=== PATIENT | female | born 1990 | race Caucasian/White ===

== ENCOUNTER 2024-10-27 18:37 | Outpatient (REF) | payer MEDICARE, MEDICAID, SELFPAY ==
--- NOTE | ~2024-10-27 | MR_ITS ---
EXAMINATION: MR BRAIN WITHOUT IV CONTRAST HISTORY: COGNITIVE CHANGES. TECHNIQUE: Sagittal T1, coronal FLAIR, and axial T1, FLAIR, T2, gradient echo, and diffusion weighted MR images of the brain were obtained. COMPARISON: None FINDINGS: The brain parenchyma is unremarkable, demonstrating normal grace/white differentiation. No foci of abnormal signal intensity are identified. The ventricular system is normal in size and configuration. There is no mass effect or midline shift. No intra or extra-axial fluid collections are identified. There are no foci of restricted diffusion. Normal vascular flow voids are noted in the basilar and carotid arteries. There is a polyp versus mucous retention cyst in the right maxillary sinus. MR/MR head/brain wo con IMPRESSION: Unremarkable MRI of the brain without contrast. Electronically signed by: Edgar Royal MD 10/30/2024 07:50 AM EDT
== END 2024-10-27 18:38 | disposition home or self-care (01) ==
LOC: HO.MRI 18:37
PROVIDERS: Visit Provider Psychiatry & Neurology Neurology
DX: R41.89 Other symptoms and signs involving cognitive functions and awareness (principal)
CPT/HCPCS: 70551

== ENCOUNTER → 2024-10-27 19:00 | Outpatient (BNV) | payer MEDICARE, MEDICAID, SELFPAY | PROVIDERS: Visit Provider Radiology Diagnostic Radiology | DX: R41.89 Other symptoms and signs involving cognitive functions and awareness (principal) | CPT/HCPCS: 70551 ==

== ENCOUNTER 2024-10-28 10:48 | Outpatient (REF) | payer MEDICARE, MEDICAID, SELFPAY ==
--- OUTSIDE RECORDS SUMMARY | 2024-10-28 10:51 | XMS_ITS | Encounter Summary ---
Author Organization [facility] Address [address] [facility] [address] [place] [address] Phone Care Team Providers Care Milk Route Deliverer Name Role Phone Destinee Alva PA-C Primary Care Provider Kylee hein Encounter Details Date Type Department Care Team ([facility] Contact Info) Description 02/12/2023 Office Communication [facility] [address] [facility] [address] [place] [address] Prabhakar Barahona Social History Tobacco Use Types Packs/Day Years Used Date Smoking Tobacco: Never Alcohol Use Standard Drinks/Week Comments Yes 0 (1 standard drink = 0.6 oz pure alcohol) Alcoholic Drinks/day: Occasional social drink Comments Unknown Sex and Gender Information Value Date Recorded Sex Assigned at Female 03/21/2022 12:48 PM EDT Legal Sex Female 4:44 PM EST Gender Identity Female 03/21/2022 12:48 PM EDT Sexual Orientation Not on file documented as of this encounter Plan of Treatment Upcoming Encounters Date Type Department Care Team (Late Contact Info) Description 01/15/2025 1:00 PM EDT Office Visit [facility] [address] [place] [address] [place] [phone] Ferny Schwab MD [address] [facility] [address] [place] [phone] documented as of this encounter Visit Diagnoses Not on filedocumented in this encounter Care Teams Milk Route Deliverer Relationship Specialty Start Date End Date Destinee Alva PA-C PCP - General Internal Medicine 01/20/24 documented as of this encounter
--- OUTSIDE RECORDS SUMMARY | 2024-10-28 10:51 | XMS_ITS | Clinical Summary ---
Author Organization [facility] Address [address] [place] [address] Phone Care Team Providers Care Funnel Setter Name Role Phone Destinee Alva PA-C Primary Care Provider Kylee hein Allergies Active Allergy Reactions Criticality Noted Date Comments Nsaids 07/06/2017 Pseudoephedrine 07/06/2017 Medications atorvastatin (LIPITOR) 20 MG tablet Take 20 mg by mouth daily 6 Active LORazepam (ATIVAN) 1 MG tablet Take 1 mg by mouth 4 (four) times a day 8 Active Melatonin 5 MG capsule Take 1 mg by mouth 1 (one) time each day Active naltrexone (DEPADE) 50 MG tablet Take 37.5 mg by mouth in the morning and 37.5 mg in the evening. Active cloNIDine (CATAPRES) 0.1 MG tablet 1 Active docusate sodium (COLACE) 100 MG capsule Take 100 mg by mouth 1 Active escitalopram (LEXAPRO) 10 MG tablet TAKE 1 TABLET BY MOUTH IN THE MORNING DECREASE IN DOSE 1 Active famotidine (PEPCID) 20 MG tablet Take 20 mg by mouth 1 (one) time each day 1 Active Incassia 0.35 MG tablet Take 1 tablet by mouth 1 (one) time each day 1 Active senna (SENOKOT) 8.6 MG tablet Take 1 tablet by mouth 1 (one) time each day 1 Active buPROPion (WELLBUTRIN) 100 MG tablet 300 mg Active famotidine (PEPCID) 20 MG tablet famotidine Take No date recorded No form recorded No frequency recorded No route recorded No set duration recorded No set duration amount recorded active No dosage strength recorded No dosage strength units of measure recorded Active D3 Super Strength 50 MCG (2000 UT) capsule Take 1 tablet by mouth 1 (one) time each day 2 Active Jardiance 10 MG tablet Take 25 mg by mouth 1 (one) time each day 2 Active losartan (COZAAR) 50 MG tablet Take 50 mg by mouth 2 Active dicyclomine (BENTYL) 20 MG tablet Take 20 mg by mouth every 6 (six) hours Active ACETAMINOPHEN ER PO Take 500 mg by mouth every 8 (eight) hours if needed for mild pain Do not crush, chew, or split. 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 02/11/2021 Recurrent major depression in remission 07/06/2017 02/11/2021 Self-injurious behavior 07/06/2017 08/06/2020 Patient encounter status 01/10/2017 Hyperlipidemia 09/01/2016 02/11/2021 Panic disorder (episodic paroxysmal anxiety) 6 02/11/2021 Servando de la Tourette's syndrome 11/08/2015 02/11/2021 Anxiety 10/21/2015 02/11/2021 Family History Medical History Relation Comments Hypertension Father Stroke Mother Relation Status Comments Father Mother Social History Tobacco Use Types Packs/Day Years [...] PM EDT Sexual Orientation Not on file Last Filed Vital Signs Vital Sign Reading Time Taken Comments Blood Pressure 130/72 01/20/2024 4:00 PM EDT Pulse 88 01/20/2024 4:00 PM EDT Temperature - - Respiratory Rate - - Oxygen Saturation 99% 01/20/2024 4:00 PM EDT Inhaled Oxygen Concentration - - Weight 66.7 kg (147 lb) 01/20/2024 4:00 PM EDT Height 154.9 cm (5' 1 ) 02/18/2021 1:37 PM EDT Body Mass Index 27.78 02/18/2021 1:37 PM EDT Plan of Treatment Upcoming Encounters Date Type Department Care Team (Late st Contact Info) Description 01/15/2025 1:00 PM EDT Office Visit [facility] [address] [place] [address] [facility] [place] [phone] Ferny Schwab MD [address] [facility] [address] [place] [address] Health Maintenance Due Date Last Done Comments Hepatitis B Vaccine (1 of 3 - 19+ 3-dose series) 2009 Pneumococcal Vaccine: Peds ( 0 to 5 Years) and At-Risk Patients (6 to 49 Years) (1 of 2 - PCV) 2009 Influenza Vaccine (Season Ended) 2025 07/21/2022, 03/27/2021, 06/03/2020 [place] Care Teams Funnel Setter Relationship Specialty Start Date End Date Destinee Alva PA-C PCP - General Internal Medicine 01/20/24
--- OUTSIDE RECORDS SUMMARY | 2024-10-28 10:51 | XMS_ITS | Clinical Summary ---
Author Organization [address] [facility] Address [address] [place] [address] Phone Care Team Providers Care Intelligence Chief Name Role Phone Brandi Hook MD Primary Care Prov ider Allergies Active Allergy Reactions Criticality Noted Date Comments Nsaids (Non-Steroidal Anti-I nflammatory Drug) 02/02/2017 Pseudoephedrine Hcl 02/02/2017 Medications hydrocortisone (ANUSOL-HC) 2.5 % rectal cream Apply 1 Dose topically 3 times daily as needed (hemorrhoid pain). 4 Active dicyclomine (BENTYL) 10 mg capsule Take 2 capsules (20 mg total) by mouth 4 (four) times a day (before meals and nightly). 4 Active atorvastatin (LIPITOR) 20 mg tablet Take 1 tablet (20 mg total) by mouth 1 (one) time each day. 4 Active senna 8.6 mg tablet Take 1 tablet (8.6 mg total) by mouth 1 (one) time each day. 4 Active empagliflozin (Jardiance) 10 mg tablet Take 25 mg by mouth daily. 1 tab po daily Active losartan (COZAAR) 50 mg tablet Take 1 tablet (50 mg total) by mouth 2 (two) times a day. Active melatonin 1 mg tablet Take 1 Tablet by mouth at bedtime. 1 tab po at bedtime Active docusate sodium (COLACE) 100 mg capsule Take 1 capsule (100 mg total) by mouth 2 (two) times a day. 3 Active KETOCONAZOLE ORAL Take by mouth. Active famotidine (PEPCID) 20 mg tablet Take 1 tablet (20 mg total) by mouth 1 (one) time each day. 3 Active lactase (Lactaid) 3,000 unit tablet Take 1 Tablet by mouth 3 times daily (with meals). 3 Active ucwsknu-doarvdr-sz ycerin (ACT Dry Mouth) lozenge Take 1 Lozenge by mouth 3 times daily as needed (dry mouth secondary to medications). 3 Active cholecalciferol (VITAMIN D-3) 50 mcg (2,000 unit) capsule Take 1 capsule (2,000 Units total) by mouth 1 (one) time each day. 2 Active biotin 5 mg capsule Take 1 capsule (5 mg total) by mouth 1 (one) time each day. Active clobetasoL (TEMOVATE) 0.05 % cream Apply topically 2 times daily. Active escitalopram (LEXAPRO) 10 mg tablet Take 10 mg by mouth daily. Active cloNIDine (CATAPRES) 0.1 mg tablet Active LORazepam (ATIVAN) 1 mg tablet Take 1 mg by mouth 2 times daily. 1mg am as needed and 1 mg at bedtime 9 Active naltrexone (DEPADE) 50 mg tablet 9 Active buPROPion SR (WELLBUTRIN SR) 150 mg 12 hr tablet Take 150 mg by mouth every morning. Active fluticasone propionate (FLONASE) 50 mcg/actuation nasal spray 1 [place] by Each Nare route daily. 6 Active acetaminophen (TYLENOL) 500 mg tablet Take 1 tablet (500 mg total) by mouth once daily as needed. 1 Active acetaminophen-pama brom 500-25 mg tablet Take 1 tablet by mouth once daily as needed. 1 Active calcium carbonate 1,500 mg (600 mg elemental calcium) tablet Take 2 tablets (3,000 mg total) by mouth 1 (one) time each day. 4 Active cetirizine (ZyrTEC) 10 mg tablet Take 1 tablet (10 mg total) by mouth 1 (one) time each day. Active citalopram (CeleXA) 40 mg tablet Take 1 tablet (40 mg total) by mouth. 6 Active dextrose-fructose- sod citrate 968-175-230 mg tablet,chewable 2 tablet(s) by mouth 2-4 tablets as needed 1 Active fluvoxaMINE (LUVOX) 100 mg tablet Take 1 tablet (100 mg total) by mouth. 8 Active haloperidoL (HALDOL) 1 mg tablet Take 1 tablet (1 mg total) by mouth 2 (two) times a day. 8 Active lamoTRIgine (LaMICtal) 25 mg tablet Take 1 tablet (25 mg total) by mouth 1 (one) time each day. 2 Active norethindrone (SHYLA,LEE,HEAT HER,MICRONOR) 0.35 mg tabletIndications: Encounter for surveillance of contraceptive pills TAKE 1 TABLET BY MOUTH EVERY DAY 84 tablet 1 5 Active Active Problems Problem Noted Date Diagnosed Date Abdominal cramping 03/31/2024 Nausea 03/31/2024 Rectal discomfort 03/31/2024 Straining with stools 03/31/2024 ADHD (attention deficit hyperactivity disorder) 10/13/2022 Renal osteodystrophy 03/24/2022 Initial insomnia 03/20/2022 Obesity 03/20/2022 Seasonal affective disorder (CMS/[facility] V24) 2021 Polycythemia, secondary 06/21/2021 Depressive disorder 06/17/2021 Hypertensive disorder 06/17/2021 Glomerulonephritis, chronic 06/17/2021 Sinus tachycardia 04/27/2021 Overview (03/31/2024): Last Assessment & Plan: We discussed the patient's sinus tachycardia and the fact that she started an exercise program this year. She believes that her overall resting heart rate is primarily below 100 in the 90s. We reviewed that in 2019 her Holter monitor suggested an overall average rate of 108. She was not exercising regularly at the time. She is treated with clonidine. She avoids all caffeine. She knows the importance of hydration. Continue to monitor can consider updating echocardiogram and/or Holter monitor to follow rate and ejection fraction. At this time praise is given for her excellent efforts at regular exercise , weight loss, healthful diet to reduce future risk. If she believes that her heart rates are elevating at rest we certainly should be notified. Of note beta-blockers were stopped due to the concern that it was exacerbating her Tourette's. Chronic kidney disease (CKD) , active medical management without dialysis, stage 3 (moderate) ([facility] V24, [facility] V28) 03/10/2021 Overview (03/31/2024): Sees nephrology at [facility] in [place] Stage 3 chronic kidney disease ([facility] V24, [facility] /[facility] V28) 02/11/2021 Secondary amenorrhea 11/16/2018 Overview (03/31/2024): Last Assessment & Plan: Reviewed could be related to halfway OCP use, although less likely with POP. I recommended labs and US to evaluate endometrial stripe. If thickened, could consider other method of contraception such as Mirena to protect endometrium as well. She agreed. Will discuss when labs and US results available. Urinary frequency 11/16/2018 Overview (03/31/2024): Last Assessment & Plan: Reassured no evidence of UTI. Likely due to flud intake. She was reassured. Recurrent major depressive d isorder, in remission ([facility] V24) 07/06/2017 Hyperlipidemia 09/01/2016 Essential hypertension 05/05/2016 Overview (03/31/2024): Last Assessment & Plan: The patient is seen 4 times annually with nephrology for her underlying renal disease and glomerulonephritis. Her blood pressure appears very well controlled in the 120s systolically. She is aware of avoiding a high salt diet. Continue with risk factor modification. Obsessive-compulsive disorder 02/05/2016 Generalized anxiety disorder 02/05/2016 Glomerulonephritis 01/16/2016 Servando de la Tourette's syndrome 11/08/2015 Nephrotic range proteinuria 11/08/2015 Proteinuria 11/08/2015 Tourette's 11/08/2015 Anxiety 10/21/2015 Eczema 10/21/2015 Hypercholesterolemia 05/28/2015 Overview (03/31/2024): Last Assessment & Plan: The patient is currently taking atorvastatin 20 mg. We reviewed her lipid profile which indicates an LDL of 62 and a triglyceride of 101 just collected last week. Continue her excellent commitment to regular exercise weight loss and healthy diet. Depression 01/17/2013 Overview (03/31/2024): IP 03/26-03/30/17 Cochlear implant status 08/12/2012 Overview (03/31/2024): Right Panic disorder 01/27/2011 Tourette's syndrome 12/18/2010 Encounters Date Type Department Care Team Description 08/31/2024 10:30 AM EDT Evaluation Outpatient [address] [phone] Carlos Hazel, PT Vertigo (Primary Dx) from Last 3 Months Immunizations Name Administration Dates Next Due Influenza Quadravalent, MDCK , 0.5ml, preservative free (Flucelvax) 6mo and older 07/21/2022,06/03/2020 Influenza, Unspecified 03/27/2021 PPD Test 08/12/2012,07/17/2011,04/28/2011 Pfizer SARS-CoV-2 COVID-19, mRNA, LNP-S, preservative free 05/13/2021 Tdap Tetanus diptheria acell ular pertussis (Boostrix; Adacel) 7yo and older 07/21/2022 Surgical History Surgery Date Site/Laterality Comments OTHER SURGICAL HISTORY Right PROCEDURE: HISTORICAL EAR SURGERY; COMMENT: Cochlear FOOT SURGERY PROCEDURE: SD UNLISTED PROCEDURE FOOT/TOES OTHER SURGICAL HISTORY PROCEDURE: SD RENAL BIOPSY SURG EXPOSURE KIDNEY; COMMENT: x 3 WISDOM TOOTH EXTRACTION PROCEDURE: HISTORICAL WISDOM TEETH EXTRACTION Medical History Medical History Date Comments Tourette's syndrome 12/18/2010 DX:Tourette' s syndrome; COMMENT: OCD/ADHD [facility] (Dr. Villalta) Hypercholesterolemia 05/28/2015 DX:Hypercho lesterolemia Eczema 10/21/2015 DX:Eczema Cochlear implant status 08/12/2012 DX:Cochl ear implant status; COMMENT: Right Depression 01/17/2013 DX:Depression; C OMMENT: IP 03/26-03/30/17 Panic disorder 01/27/2011 DX:Panic disorde r Anxiety 04/19/2017 DX:Anxiety Essential hypertension 05/05/2016 DX:Essent ial hypertension Glomerulonephritis 01/16/2016 DX:Glomerulon ephritis Nausea DX:Nausea IBS (irritable bowel syndrome) D X:IBS (irritable bowel syndrome) Nausea DX:Nausea Abdominal cramping DX:Abdominal cramping Rectal discomfort DX:Rectal disc omfort Straining with stools DX:Straini ng with stools Nausea DX:Nausea Abdominal cramping DX:Abdominal cramping Hemorrhoids DX:Hemorrhoids Family History Medical History Relation Name Comments Breast cancer Aunt Maternal Coronary artery disease Father [place] w ith PCI, HTN, Hyperlipidemia, Colon Polyps Diabetes Father T2DM Coronary artery disease Maternal Grandmother Stroke Mother x2 d/t Patent F oramen [place],Thyroid Disorder, gallbladder disease, prediabetes Breast cancer Mother's side 1 Great Grand mother Other: Venous Thromboembolism Mother's side 2 2 siblings Other: gallbladder disease Mother's side 3 cousin (also with kidney disease) CABG Paternal Grandfather 3 diffe rent surgeries apparently Prostate cancer Paternal Grandfather Breast cancer Paternal Grandmother dx at 42 Cervical cancer Neg Hx Colon cancer Neg Hx Ovarian cancer Neg Hx Pancreatic cancer Neg Hx Uterine cancer Neg Hx Relation Name Status Comments Aunt Maternal Alive Father Alive Maternal Grandmother Mother Alive Mother's side 1 Mother's side 2 Mother's side 3 Paternal Grandfather Paternal Grandmother Alive Social History Tobacco Use Types Packs/Day Years Used Date Smoking Tobacco: Never Smokeless Tobacco: Never Alcohol Use Standard Drinks/Week Comments Yes 0 (1 standard drink = 0.6 oz pur e alcohol) rare Comments No Sex and Gender Information Value Date Recorded Sex Assigned at Female 08/09/2024 2:33 PM EST Legal Sex Female 5:54 AM EST Gender Identity Female 08/09/2024 2:33 PM EST Sexual Orientation Not on file Obstetrics History Para Term AB IAB SAB Ectopic Multiple Livin g Live Births 0 0 0 0 0 0 0 0 0 0 0 Last Filed Vital Signs Vital Sign Reading Time Taken Comments Blood Pressure 124/92 06/22/2024 2:20 PM EST Pulse 98 06/22/2024 2:20 PM EST Temperature 37.1 ??C (98.8 ??F) 05/25/2024 12:[address] Respiratory Rate 12 05/25/2024 12:04 PM EST Oxygen Saturation - - Inhaled Oxygen Concentration - - Weight 65 kg (143 lb 6.4 oz) 05/25/2024 12:04 PM EST Height 154.9 cm (5' 1 ) 06/22/2024 2:20 PM EST Body Mass Index 27.1 05/25/2024 12:04 PM EST Plan of Treatment Upcoming Encounters Date Type Department Care Team (Late st Contact Info) Description 11/14/2024 11:00 AM EDT Office Visit Orthopedic Surgery - [place] [address] [facility] [address] [place] [phone] Sabrina Luong PA 174 [facility] [address] [place] [phone] 11/16/2024 3:00 PM EDT Office Visit Adult Medicine [facility] [address] [place] [address] Destinee Alva PA [address] [place] [address] 11/30/2024 9:50 AM EDT Office Visit [facility] [address] [facility] [address] [place] [phone] Vale Jane MD [address] [place] [address] Health Maintenance Due Date Last Done Comments Hepatitis B Vaccines (1 of 3 - 19+ 3-dose series) 2009 Pneumococcal Vaccine: Pediatrics (0 to 5 Years) and At-Risk Patients (6 to 64 Years) (1 of 2 - PCV) 2009 HIV Screening 05/23/2022 Medicare Annual Wellness Visit 05/23/2022 Social Influencers of Health Screening 05/23/2022 COVID-19 Vaccine ( season) 2024 09/22/2022, 05/13/2021, 09/19/2020, Additional history exists Depression Screening 08/10/2024 08/10/2023 Hypertension/CHF/CAD Annual BMP Blood Test 01/03/2025 01/04/2024, 01/04/2024, 11/09/2023 Influenza Vaccine (Season Ended) 2025 07/21/2022, 03/27/2021, 06/03/2020 Cervical Cancer Screening: HPV 07/03/2026 07/03/2021 Cholesterol Screening (Lipid Panel) 06/17/2028 06/17/2023 DTaP,Tdap,and Td Vaccines (2 - Td or Tdap) 07/21/2032 07/21/2022 Hepatitis C Screening Completed 09/12/2015 HIB Vaccines Aged Out No longer eligi ble based on patient's age to complete this topic HPV Vaccines Aged Out No longer eligi ble based on patient's age to complete this topic Hepatitis A Vaccines Aged Out No long er eligible based on patient's age to complete this topic IPV Vaccines Aged Out No longer eligi ble based on patient's age to complete this topic MMR Vaccines Aged Out No longer eligi ble based on patient's age to complete this topic Meningococcal ACWY Vaccine Aged Out N o longer eligible based on patient's age to complete this topic Meningococcal B Vaccine Aged Out No l onger eligible based on patient's age to complete this topic RSV Immunization Patients Under 20 months Aged Out No longer eligible based on patient's age to complete this topic Varicella Vaccines Aged Out No longer eligible based on patient's age to complete this topic Procedures Procedure Name Priority Date/Time Associated Diagnosis Comments ANNUAL BMP BLOOD TEST Routine 01/04/2024 DEPRESSION SCREENING Routine 08/10/2023 LIPID PANEL Routine 06/17/2023 HPV Routine 07/03/2021 HEPATITIS C SCREENING Routine 09/12/2015 from Last 3 Months or Most Recently Relevant to Health Maintenance Results * Annual BMP Blood Test (01/04/2024) Annual BMP Blood Test abstracted us Historical Provider MD HEALTH MAINTENANCE Final Result * Depression Screening (08/10/2023) [facility] Depression Screening abstracted [facility] Provider HEALTH MAINTENANCE Final Result * Lipid panel (06/17/2023) [facility] LDL/HDL Ratio 2 0 - 4 Triglycerides 102 0 - 150 mg/dL Cholesterol 163 0 - 200 mg/dL HDL 74 >=40 mg/dL LDL Cholesterol 69 0 - 100 mg/dL Blood Venous blood specimen / Unknown [facility] Provider LAB BLOOD ORDERABLES Barbara l Result * Cervical Cancer Screening: HPV (07/03/2021) [facility] Cervical Cancer Screening: HPV negative, abstracted [facility] Provider HEALTH MAINTENANCE Final Result * Hepatitis C Screening (09/12/2015) [facility] Hepatitis C Screening abstracted [facility] Provider HEALTH MAINTENANCE Final Result from Last 3 Months or Most Recently Relevant to Health Maintenance Insurance MEDICARE MEDICAID - [place] Care Teams Intelligence Chief Relationship Specialty Start Date End Date Brandi Hook MD [address] [place] [id number] PCP - General Internal Medicine 07/14/24
--- OUTSIDE RECORDS SUMMARY | 2024-10-28 10:51 | XMS_ITS | Clinical Summary ---
Author Organization [facility] Address [address] [facility] [place] [address] Care Team Providers Care Counselor Dormitory Name Role Phone Pcp, No Primary Care Provider [phone] Allergies Active Allergy Reactions Criticality Noted Date Comments Nsaids (Non-Steroidal Anti-I nflammatory Drug) 07/06/2017 Pseudoephedrine 07/06/2017 Medications atorvastatin (LIPITOR) 20 MG tablet TAKE 1 TABLET BY MOUTH EVERY DAY 3 Active atorvastatin (LIPITOR) 20 MG tablet Take 1 tablet (20 mg total) by mouth 6 Active buPROPion (WELLBUTRIN) 100 MG tablet bupropion HCl Take No date recorded No form recorded No frequency recorded No route recorded No set duration recorded No set duration amount recorded active No dosage strength recorded No dosage strength units of measure recorded Active buPROPion (WELLBUTRIN XL) 300 MG 24 hr tablet TAKE 1 TABLET BY MOUTH EVERY DAY IN THE MORNING (DOSE INCREASE) 3 Active buPROPion (WELLBUTRIN SR) 150 MG 12 hr tablet Take 1 tablet (150 mg total) by mouth 7 Active buPROPion (WELLBUTRIN XL) 150 MG 24 hr tablet Take 1 tablet (150 mg total) by mouth 1 Active cholecalciferol , vitamin D3, 50 mcg (2,000 unit) TAKE 1 CAPSULE BY MOUTH EVERY DAY 3 Active cholecalciferol , vitamin D3, 50 mcg (2,000 unit) Take 1 tablet by mouth 2 Active citalopram (CeleXA) 40 MG tablet Take 1 tablet (40 mg total) by mouth 6 Active cloNIDine HCL (CATAPRES) 0.1 MG tablet 3 Active cloNIDine HCL (CATAPRES) 0.1 MG tablet 1 Active docusate sodium (COLACE) 100 MG capsule Take 1 capsule (100 mg total) by mouth 1 Active docusate sodium (COLACE) 100 MG capsule TAKE 1 CAPSULE BY MOUTH TWICE A DAY 3 Active Jardiance 10 mg tab TAKE 1 TABLET BY MOUTH EVERY DAY 3 Active empagliflozin (Jardiance) 10 mg tab Take by mouth 2 Active escitalopram oxalate (LEXAPRO) 10 MG tablet TAKE 1 TABLET BY MOUTH EVERY DAY IN THE MORNING 3 Active escitalopram oxalate (LEXAPRO) 10 MG tablet TAKE 1 TABLET BY MOUTH IN THE MORNING DECREASE IN DOSE 1 Active escitalopram oxalate (LEXAPRO) 20 MG tablet Take 1 tablet (20 mg total) by mouth 9 Active famotidine (PEPCID) 20 MG tablet famotidine Take No date recorded No form recorded No frequency recorded No route recorded No set duration recorded No set duration amount recorded active No dosage strength recorded No dosage strength units of measure recorded 1 Active famotidine (PEPCID) 20 MG tablet TAKE 1 TABLET BY MOUTH EVERY DAY 3 Active fluvoxaMINE (LUVOX) 100 MG tablet Take 1 tablet (100 mg total) by mouth 8 Active haloperidoL (HALDOL) 0.5 MG tablet Take 1.5 tablets (0.75 mg total) by mouth 6 Active haloperidoL (HALDOL) 1 MG tablet TAKE 1 TABLET(1 MG) BY MOUTH TWICE DAILY 8 Active ketoconazole (NIZORAL) 2 % shampoo USE DAILY BODY WASH NEEDED 3 Active lorazepam (ATIVAN) 0.5 MG tablet lorazepam Take No date recorded No form recorded No frequency recorded No route recorded No set duration recorded No set duration amount recorded active No dosage strength recorded No dosage strength units of measure recorded 6 Active lorazepam (ATIVAN) 1 MG tablet Take 1 tablet (1 mg total) by mouth 8 Active lorazepam (ATIVAN) 1 MG tablet TAKE 1 TABLET BY MOUTH TWICE A DAY NEEDED 3 Active losartan (COZAAR) 100 MG tablet Take 1 tablet (100 mg total) by mouth 7 Active losartan (COZAAR) 25 MG tablet Take 1 tablet (25 mg total) by mouth 9 Active losartan (COZAAR) 50 MG tablet TAKE 1 TABLET BY MOUTH TWICE A DAY 3 Active losartan (COZAAR) 50 MG tablet Take 1 tablet (50 mg total) by mouth 2 Active melatonin 5 mg cap Take 5 mg by mouth Active naltrexone (DEPADE) 50 mg tablet Take 0.5 tablets (25 mg total) by mouth Active naltrexone (DEPADE) 50 mg tablet TAKE 3/4 TABLET BY MOUTH TWICE DAILY 3 Active norethindrone (Incassia) 0.35 mg tablet Take 1 tablet (0.35 mg total) by mouth 1 Active norethindrone (ORTHO MICRONOR) 0.35 mg tablet Take 1 tablet (0.35 mg total) by mouth 9 Active norethindrone (ORTHO MICRONOR) 0.35 mg tablet Take by mouth 6 Active norethindrone (ORTHO MICRONOR) 0.35 mg tablet TAKE 1 TABLET BY MOUTH EVERY DAY 3 Active Senna Laxative 8.6 mg tablet TAKE 1 TABLET BY MOUTH EVERY DAY 3 Active senna (SENOKOT) 8.6 mg tablet Take 1 tablet by mouth 1 Active Social History Tobacco Use Types Packs/Day Years Used Date Smoking Tobacco: Never Assessed Comments No Sex and Gender Information Value Date Recorded Sex Assigned at Not on file Legal Sex Female 9:37 AM EST Gender Identity Not on file Sexual Orientation Not on file Last Filed Vital Signs Vital Sign Reading Time Taken Comments Blood Pressure 116/80 06/19/2023 2:21 PM EST Pulse 120 06/19/2023 2:22 PM EST Temperature 36.7 ??C (98 ??F) 06/19/2023 2:21 PM EST Respiratory Rate 18 06/19/2023 2:21 PM EST Oxygen Saturation 99% 06/19/2023 2:21 PM EST Inhaled Oxygen Concentration - - Weight - - Height - - Body Mass Index - - Plan of Treatment Health Maintenance Due Date Last Done Comments Depression: Screening Annual ly using PHQ-2/9 in Adults 18 yrs or above (or HM Modifier)([facility]) 2008 Hepatitis C Virus Infection in Adolescents and Adults: Screening (or Modifier) ([facility]) 2008 [facility] Screening Reminder: Elissa burns for all adults ([facility]) 2008 Tobacco Smoking Cessation: i n Adults excluding Women: Behavioral and Pharmacotherapy Interventions ([facility]) 2008 DTaP/Tdap/Td Vaccines ([facility]) (1 - Tdap) 2009 Lipid Screening: Once for Wo men aged 20 to 45 yrs ([facility]) 2010 Cervical Cancer Screenin 1-65 yrs of age (or Modifier) 2011 Cervical Cancer Screening: P ap every 3 yrs pts age 21-65 2011 Cervical Cancer: Pap Screeni ng with Modifier timing ([facility]) 2011 Cervical Cancer: hrHPV alone or with cotesting Pap for Pts 30-65yrs screening every 5yrs ([facility]) 2011 COVID-19 Vaccine Screening: Initial Series and Booster Status ([facility]) ( - 2023- season) 2024 Flu Vaccination: Yearly for ages 18mos through 64 years (or Modifier)([facility]) 01/12/2025 Zoster/Shingles Vaccine Seri es Screening: Adults aged 18+ yrs (or HM Modifiers)([facility]) (1 of 2) 2040 Pneumococcal Vaccination Scr eening: Pts 0-19 & 19-49 yrs of age ([facility]) Aged Out No longer eligible based on patient's age to complete this topic Medical Devices Not on file Insurance MEDICARE [facility] Care Teams Counselor Dormitory Relationship Specialty Start Date End Date Pcp, No PCP - General Family Medicine 06/19/23
[2024-10-28 12:05] LABS: Anion Gap 11 (12-20); Blood Urea Nitrogen 14 mg/dL (9-16); Calcium 8.9 mg/dL (8.4-10.2); Carbon Dioxide 23 mmol/L (22-29); Chloride 112 mmol/L (96-108); Estimated Glomerular Filt Rate 32; Glucose Random 85 mg/dL (60-115); Potassium 4.5 mmol/L (3.3-5.1); Sodium 141 mmol/L (135-145)
[2024-10-28 12:18] LABS: Folate 8.7 ng/mL (> or = 4.0); Vitamin B12 406 pg/mL (200-900)
[2024-10-28 12:23] LABS: Erythrocyte Sedimentation Rate 2 MM/HR (0-20)
== END 2024-10-28 10:49 | disposition home or self-care (01) ==
LOC: HO.LAB 10:48
PROVIDERS: PCP Internal Medicine; Visit Provider Psychiatry & Neurology Neurology
DX: R41.89 Other symptoms and signs involving cognitive functions and awareness (principal)
CPT/HCPCS: 36415; 80048; 82607; 82746; 85652